=== PATIENT | female | born 1965 | race Caucasian/White ===

== ENCOUNTER 2024-04-24 10:02 | Emergency (ER) | payer BC ==
[~2024-04-24] VITALS: Ht 175.3 cm; Wt 80.5 kg
[~2024-04-24 10:02] MED LIST: GLUC-150 PO; SOY155CA PO; VENL-191 PO; [UNRECOGNIZED DRUG - OTHER]
[2024-04-24 10:09] VITALS: TEMP 97.3
[2024-04-24 13:19] VITALS: BP 153/95; PULSE 53; O2SAT 95
[2024-04-24 13:36] VITALS: RESP 16
[2024-04-24] MEDS: ketorolac trometh 30MG/ML vial 30 MG/ML VIAL IM STA (13:36)
== END 2024-04-24 13:47 | disposition home or self-care (01) ==
LOC: ER 10:02
DX: M53.3 Sacrococcygeal disorders, not elsewhere classified (principal); Z88.0 Allergy status to penicillin; Z79.899 Other long term (current) drug therapy
CPT/HCPCS: 72220; 96372; 99283; J1885

== ENCOUNTER 2024-05-15 09:09 | Outpatient (CLI) | payer BC | END 2024-05-15 23:59 | disposition home or self-care (01) | LOC: US 09:09 | PROVIDERS: ATTEND Registered Nurse | DX: S39.91XD Unspecified injury of abdomen, subsequent encounter (principal); X58.XXXD Exposure to other specified factors, subsequent encounter; R19.00 Intra-abdominal and pelvic swelling, mass and lump, unspecified site | CPT/HCPCS: 76700; 76705 ==